=== PATIENT | female | born 1985 | race Caucasian/White ===

== ENCOUNTER 2019-07-24 15:40 | Outpatient (CLI) | payer OTHER | END 2019-07-24 17:14 | disposition home or self-care (01) | LOC: NST 15:40 | DX: Z34.82 Encounter for supervision of other normal pregnancy, second trimester (principal) ==

== ENCOUNTER 2019-10-04 14:01 | Outpatient (CLI) | payer OTHER | END 2019-10-04 17:00 | disposition home or self-care (01) | LOC: NST 14:01 → OBS/DEL 14:01 | DX: O26.893 Other specified pregnancy related conditions, third trimester (principal); R10.2 Pelvic and perineal pain ==

== ENCOUNTER 2019-11-04 13:08 | Outpatient (CLI) | payer OTHER | END 2019-11-04 13:48 | disposition home or self-care (01) | LOC: NST 13:08 | DX: Z34.83 Encounter for supervision of other normal pregnancy, third trimester (principal) ==

== ENCOUNTER 2019-11-26 10:45 | Inpatient (IN) | payer OTHER ==
[~2019-11-26] VITALS: Ht 160 cm; Wt 2.3 kg
[2019-11-26] MEDS ORDERED: SYNTHROID75 MCG PO (12:37)
[2019-11-26] MEDS ORDERED: PRENATAL TABLE1 EAC1 PO (12:38)
[2019-11-26] MEDS ORDERED: VALTREX1000 MG PO (12:38)
== END 2019-11-29 12:20 | disposition home or self-care (01) | DRG 788 ==
LOC: NST 10:45 → LDR 11:31 → SURG-SUITE 11:31
PROVIDERS: ADMIT Obstetrics & Gynecology
PROC: 4A1HXCZ Monitoring of Products of Conception, Cardiac Rate, External Approach (ICD-10-PCS; 2019-11-26)
PROC: 10D00Z1 Extraction of Products of Conception, Low, Open Approach (ICD-10-PCS; principal; 2019-11-26 16:00)
DX: O82 Encounter for cesarean delivery without indication (principal); O64.8XX0 Obstructed labor due to other malposition and malpresentation, not applicable or unspecified; O30.043 Twin pregnancy, dichorionic/diamniotic, third trimester; Z3A.36 36 weeks gestation of pregnancy; Z37.2 Twins, both liveborn